=== PATIENT | male | born 1950 | race Caucasian/White ===

== ENCOUNTER → 2016-08-07 | Outpatient (CLI) | payer OTHER ==
[~2016-08-07] MED LIST: IOPAMIDOL (ISOVUE-370) 150 ML BTL IV ONE; LIDOCAINE 1% 30 ML SDV ONE; NA BICARBONATE 50 MEQ/50 ML VIAL ONE
== END ==
LOC: FIMAGING 12:58
PROVIDERS: ATTEND Orthopaedic Surgery
PROC: 3E0U3KZ Introduction of Other Diagnostic Substance into Joints, Percutaneous Approach (ICD-10-PCS; principal; 2016-08-07)
DX: S46.112A Strain of muscle, fascia and tendon of long head of biceps, left arm, initial encounter (principal); M19.012 Primary osteoarthritis, left shoulder; Z95.0 Presence of cardiac pacemaker
CPT/HCPCS: Q9967

== ENCOUNTER 2016-08-24 10:58 | Emergency (ER) | payer OTHER ==
[2016-08-24 11:51] VITALS: BP 145/62; PULSE 78; RESP 18; TEMP 98; O2SAT 97
--- NOTE | 2016-08-24 12:19 | UCPHY ---
H & P Time Seen by Provider: 08/24/16 11:53 Patient Type: Established HPI/ROS: This patient injured his left biceps while golfing on Wednesday, 3 days prior to arrival. He explains that he felt a pop in the biceps during a golf swing with debris severe pain followed by a mild to moderate pain. He is able to finish the game but noticed that if he swung the club part he had more pain to the area. He has had significant bruising to the biceps that is extended to the forearm since that time and came in for evaluation. He is on Plavix. ROS: No numbness to the affected extremity. No other injuries. No lightheadedness. 5 point ROS is otherwise negative. Past Medical/Surgical History: Cardiac disease No recent quinolone antibiotics Smoking Status: Never smoked Physical Exam: Physical Exam Vital signs are normal. General: No acute distress HEENT: Atraumatic. Eyes: Pupils equal and react to light. Extraocular motions are intact. Lungs: No respiratory distress. Cardiac: Brisk capillary refill is intact throughout. Pulses are 2+ and symmetric in the affected extremity. Skin: No rash or pallor. Extremities: Atraumatic normal except for left upper extremity Left upper extremity: Patient has ecchymosis mild swelling and biceps deformity proximally. Despite this he retains full range of motion of flexion with increased pain versus resistance to the left biceps. The ecchymosis extends to the distal left forearm with mild swelling. No significant forearm tenderness. No elbow swelling or tenderness. Neuro: Alert and oriented x3 with no sensorimotor deficits. Initial differential diagnosis: Biceps tendon rupture, traumatic hematoma Constitutional: Initial Vital Signs Temperature (C) 36.6 C 08/24/16 11:47 Heart Rate 78 08/24/16 11:47 Respiratory Rate 18 08/24/16 11:47 Blood Pressure 145/62 H 08/24/16 11:47 O2 Sat (%) 97 08/24/16 11:47 O2 Delivery Mode Room Air Allergies/Adverse Reactions: No Known Allergies Allergy (Unverified 03/26/09 06:34) Home Medications: Medication Instructions Recorded Hydrochlorothiazide [HCTZ (*)] 25 mg PO DAILY@1800 05/17/12 Lisinopril [Zestril 40 mg (*)] 40 mg PO DAILY 05/17/12 Vansant-3 Ethyl Est-Lovaza [Lovaza 1 1 gm PO BID 05/17/12 gm (*)] amLODIPine BESYLATE [Norvasc 10 mg 10 mg PO DAILY 05/17/12 (*)] Anoro Ellipta 62.5-25 Mcg INH 1 puffs IH DAILY 05/22/16 Aspirin EC [Aspirin EC 81 mg (*)] 81 mg PO DAILY 05/22/16 Atorvastatin Calcium [Lipitor 80 80 mg PO HS 05/22/16 mg] Fenofibrate [Tricor 145 mg (*)] 145 mg PO DAILY@1800 05/22/16 Magnesium Oxide [Magnesium Oxide 400 mg PO HS 05/22/16 400 mg (*)] Multivitamins [Multivitamin (*)] 1 each PO DAILY 05/22/16 Clopidogrel Bisulfate [Plavix (*)] 75 mg PO DAILY #0 tab 05/23/16 MDM/Departure - [facility] ED Course/Re-evaluation: History and physical are characteristics of biceps tendon rupture. I counseled patient regarding this. He is placed in Sean wrap. I counseled him regarding this. He will follow up with Dr. Fink-orthopedics for any ongoing symptoms. - Depart Disposition: Home, Routine, Self-Care Clinical Impression: Biceps tendon rupture, traumatic Qualifiers: Encounter type: initial encounter Laterality: left Qualified Code(s): S46.212A - Strain of muscle, fascia and tendon of other parts of biceps, left arm, initial encounter Condition: Good Instructions: Tendon Rupture (ED) Additional Instructions: Diagnosis: Biceps tendon rupture left arm Plan: Ice 20 minutes at a time 3 times a day until symptoms resolve Elevate the arm when you are able Avoid prolonged heat. Tylenol for discomfort if needed Symptoms should gradually resolve over the next 10 days to 2 weeks. Follow up with Dr. Fink for any ongoing symptoms or concerns. Referrals: Juan Finch MD [Primary Care Provider] - As per Instructions - PQRS PQRS Measurement: 134: Depression screening and followup, PRIME MARIN-PHQ2 (12 years and older) Over the last 2 weeks, how often have you been bothered by any of the following problems? 1. Feeling down, depressed, or hopeless? 2. Little interest or pleasure in doing things? Patient answered no to both 1 and 2 130: Documentation of medications. Reviewed all patient medications, doses, route and frequency. 226: Do you smoke? [No.] 47: 65 and older: Advanced care planning. Patient designates surrogate decision maker as spouse 51: 18 years old and older with diagnosis of COPD, spirometry performance. NA 52: 18 years old and older with COPD and symptoms of COPD or FEV1<60% predicted prescribed a B Agonist. NA
== END 2016-08-24 12:49 | disposition home or self-care (01) ==
LOC: CED 10:58
DX: S46.212A Strain of muscle, fascia and tendon of other parts of biceps, left arm, initial encounter (principal); I51.9 Heart disease, unspecified; Y93.53 Activity, golf
CPT/HCPCS: 99213-PO; G0463-PO

== ENCOUNTER → 2017-05-07 | Outpatient (CLI) | payer OTHER ==
[~2017-05-07] MED LIST changes: +IOPAMIDOL (ISOVUE 370) 100 ML BTL IV ONE; -IOPAMIDOL (ISOVUE-370) 150 ML BTL IV ONE; -LIDOCAINE 1% 30 ML SDV ONE; -NA BICARBONATE 50 MEQ/50 ML VIAL ONE
== END ==
LOC: FIMAGING 10:54
PROVIDERS: ATTEND Internal Medicine Cardiovascular Disease
DX: I71.4 Abdominal aortic aneurysm, without rupture (principal); I77.1 Stricture of artery; K80.20 Calculus of gallbladder without cholecystitis without obstruction; M51.36 Other intervertebral disc degeneration, lumbar region; M51.37 Other intervertebral disc degeneration, lumbosacral region
CPT/HCPCS: Q9967